=== PATIENT | female | born 1965 | race Caucasian/White ===

== ENCOUNTER 2016-08-18 14:11 | Emergency (ER) ==
--- NOTE | 2016-08-18 14:49 | PROVIDER DOCUMENTATION ---
HPI-Syncope/Dizziness - General Chief Complaint: Dizziness Stated Complaint: VERIGO/STIFF NECK ON THE RIGHT SIDE Time Seen by Provider: 08/18/16 14:31 Source: patient Allergies/Adverse Reactions: Patient Allergies Allergy/AdvReac Type Severity Reaction Status Date / Time No Known Allergies Allergy Verified 11/03/15 11:56 Home Medications: Home Medication List Medication Instructions Recorded Confirmed Last Taken Type Meclizine [Antivert] 12.5 mg PO TID 11/03/15 11/03/15 11/03/15 History Prednisone 20 mg PO BID #10 tablet 11/03/15 Unknown Rx Sulfamethoxazole/Trimethoprim 2 each PO BID #40 tablet 11/03/15 Unknown Rx [Bactrim Ds Tablet] - History of Present Illness-Syncope/Dizzy Nature of Presenting Problem: patient is a 51 y/o F that presents to the ER with dizziness and stiff neck x a few days. patient reports history of vertigo and ear infection. patient denies fever/chills. she is able to move neck but doesn't because of dizziness Onset/Duration: reports: gradual, 3 days ago, 4 days ago Timing: reports: still present, constant, getting worse Similar symptoms previously: reports: previous diagnosis, tests Recently Seen Here or By Another Healthcare Provider: Yes - Dizziness Severity in ED: reports: moderate Dizziness Related Current/Associated Symptoms: reports: lightheaded, dizzy, lightheaded. denies: nausea/vomiting, off balance Any recent trauma/injury?: reports: none Modifying Factors: improves with: movement of head Patient usually:: reports: walks without assistance Review of Systems - Adult - REVIEW OF SYSTEMS - ADULT Constitutional: denies: chills, fever Eyes: reports: no symptoms reported Ears, Nose, Mouth & Throat: denies: ear pain, sinus problem, throat pain, throat swelling Cardiovascular: denies: chest pain, palpitations, syncope Respiratory: denies: cough, shortness of breath, wheezing Gastrointestinal: denies: abdominal pain, diarrhea, frequent heartburn, nausea, vomiting Genitourinary: reports: no symptoms reported Musculoskeletal: reports: neck pain. denies: back pain, joint pain Integumentary: reports: no symptoms reported Neurological: reports: dizziness/vertigo. denies: headache/migraines, tremors Psychiatric: reports: no symptoms reported Endocrine: reports: no symptoms reported Hematologic/Lymphatic: reports: no symptoms reported Allergic/Immunologic: reports: no symptoms reported All Other Systems: Reviewed and Negative Past History - Adult - PAST MEDICAL HISTORY-ADULT Review of Records: reports: Old Records Reviewed, Nursing Assessment Review, Medications Reviewed Cardiovascular: reports: blood clots (dvt) Neurological: reports: other (vertigo) - PRIOR SURGERIES/PROCEDURES Surgical/Procedure History: reports: hysterectomy, - IMMUNIZATION STATUS Childhood Immunizations: See Nurse Assessment Flu Vaccine: See Nurse Assessment - FAMILY HISTORY Family History: reviewed, not pertinent - SOCIAL HISTORY Smoking: non-smoker Living Situation: family Physical Exam-General - CONSTITUTIONAL General Appearance: alert, no apparent distress - EYES Eyes: PERRL/EOMI, pink conjunctivae - HEAD, EARS, NOSE, MOUTH & THROAT HENMT: normocephalic/atraumatic, moist mucous membranes, normal ENT inspection - NECK Neck: non-tender, full range of motion, supple, normal inspection. negative: limited range of motion, meningismus - RESPIRATORY Respiratory: lungs clear, normal breath sounds, no respiratory distress, no accessory muscle use - CARDIOVASCULAR Cardiovascular: regular rate, rhythm, no edema, no murmur - GASTROINTESTINAL (ABDOMEN) Abdominal Exam: normal bowel sounds, non tender, soft, no organomegaly, no pulsatile mass - MUSCULOSKELETAL Extremity: normal range of motion, normal inspection, no pedal edema, normal capillary refill - SKIN Integumentary: normal color, warm/dry - NEUROLOGIC Neurologic: grossly normal, no motor/sensory deficits - PSYCHIATRIC Psych/Mental Status: normal mood/affect, normal thought content, normal thought process, oriented x 3 Progress - PLAN OF CARE/RESULTS Progress/Plan/Lab Results: Vital Signs Temp Pulse Resp BP Pulse Ox 08/18/16 14:21 97.8 F 96 H 18 122/72 100 No Known Allergies Allergy (Verified 11/03/15 11:56) Meclizine [Antivert] 12.5 mg PO TID 11/03/15 Prednisone 20 mg PO BID #10 tablet 11/03/15 Sulfamethoxazole/Trimethoprim [Bactrim Ds Tablet] 2 each PO BID #40 tablet 11/02 Orders Category Date Time Status Levofloxacin [Levaquin] Med 08/18/16 14:54 Discontinued 750 mg PO NOW ONE Methylprednisolone Sod Succ [Solu-Medrol] Med 08/18/16 14:53 Discontinued 125 mg IM NOW ONE pt will be d/c home f/u with pcp, rx given, pt was clinically and neurologically stable Departure - Departure Time of Disposition Order: 15:37 DIAGNOSIS: Vertigo Disposition: HOME 01 Certified Medical Emergency: Emergent Condition: Stable Additional Instructions: ED Follow Up Instructions: You have been treated by a care provider in the Emergency Department. These instructions are being provided to you so you can have an understanding of how to care for yourself upon discharge. Upon discharge from the Emergency Department, you are responsible for making arrangements for follow-up care by a physician of your choice. Take all prescribed medications as directed. Return to the Emergency Department immediately for any new or worsening symptoms. You may call the Physician Referral phone number at [phone] to obtain a list of Physicians who are taking new patients. Referrals: None,PCP [Primary Care Provider] - Roel Watkins MD [STAFF PHYSICIAN] - Call for Appoint. 1-2days Instructions: Vertigo, [id number] Attestation - Scribe Verification/Attestation Scribe:: Doc Young Acting as Scribe for:: Luisa Pang Scribe documention review:: This chart was documented by a scribe and accurately reflects the service the provider performed and the decisions made by the provider. Physician Attestation - Physician Attestation I, the provider, attest to the following statement:: Luisa Pang Physician documentation Attestation:: This documentation recorded by the scribe accurately reflects the service I personally performed and the decisions made by me.
[2016-08-18] MEDS ORDERED: SOLU-MEDROL IM ONE (14:53)
[2016-08-18] MEDS ORDERED: LEVAQUIN PO ONE (14:54)
[2016-08-18 16:17] VITALS: BP 100/74
== END 2016-08-18 16:16 | disposition home or self-care (01) ==
LOC: P.ED 14:11
DX: R42 Dizziness and giddiness (principal); M54.2 Cervicalgia; Z86.718 Personal history of other venous thrombosis and embolism; Z79.52 Long term (current) use of systemic steroids; Z79.899 Other long term (current) drug therapy
CPT/HCPCS: 82948; 96372; J2930